=== PATIENT | female | born 1940 | race Caucasian/White ===

== ENCOUNTER → 2017-11-26 | Outpatient (CLI) | payer OTHER ==
[~2017-11-26] MED LIST: GELATIN SPONGE 12-7MM ONE; LIDOCAINE HCL 1% LOCAL INJ 20 ML VIAL ONE
[2017-11-26 10:57] LABS: INR 0.98; PARTIAL THROMBOPLASTIN TIME 25.8 seconds (23.8-35.5); PROTHROMBIN TIME 12.2 seconds (11.9-14.5)
--- NOTE | 2017-11-26 13:18 | Diagnostic Imaging Report ---
Ultrasound-guided targeted kidney mass biopsy 11/26/2017 Pre-Procedure Diagnosis: Left kidney mass Post-procedure Diagnosis:Left kidney mass Distribution Center Administrator: Patti Rider Audio Visual Engineer: None Sedation: None. Heart rate and oxygen saturation were monitored in real-time. Blood pressure was measured in 5 minute increments. 1% lidocaine was used for local anesthesia. Estimate blood loss: <5 mL Blood administered: None Complications: None Implants/Grafts: None Specimen: 22-gauge FNA x3; 18-gauge 2 cm core x4 Procedure: Informed consent was obtained and the patient placed right decubitus within the CT suite. A timeout was performed. Given the patient's labored breathing and concern for motion during CT-guided biopsy, I elected to change modality to ultrasound for patient safety. Preliminary ultrasound of the left kidney was performed. The left flank was prepped and draped in standard sterile fashion. Using real-time ultrasound guidance a 19-gauge needle was advanced into the left superior pole renal mass from a low intercostal approach. An image was started in the electronic medical record. 3 22-gauge FNA biopsy specimens were obtained, followed by 4 18-gauge 2 cm core biopsies. Images of each biopsy were stored in the electronic medical record. Samples were submitted to pathology for a specimen adequacy check, which was confirmed. Hemostasis was achieved with placement of the needle stylette during adequacy checked, followed by [place]oam slurry tract embolization. The patient tolerated the procedure well. No complications. Findings: 4 cm left superior pole renal mass. Impression: Successful targeted left superior pole kidney mass biopsy. This report was generated with voice-recognition technology. Errors in director child development center can occur. Please interpret accordingly and contact a radiologist if there are any questions regarding the report. Signed by: Dr. Jenaro Rider M.D. on 11/26/2017 1:15 PM
== END ==
LOC: CT 09:42
PROVIDERS: ATTEND Urology
DX: D41.02 Neoplasm of uncertain behavior of left kidney (principal)
CPT/HCPCS: 10022; 36415; 50200; 76942; 85049; 85610; 85730; 88112; 88305; J2001; 88172; 88173